=== PATIENT | female | born 1980 | race Caucasian/White ===

== ENCOUNTER 2019-02-18 09:52 | Day surgery (SDC) | payer BC ==
[2019-02-18] MEDS ORDERED: FENTANYL PF 100MCG/2ML VIAL IV ONE (09:53)
[2019-02-18] MEDS ORDERED: LIDOCAINE 2% MDV (20MG/ML) 20ML VIAL IV ONE (09:53)
[2019-02-18] MEDS ORDERED: PROPOFOL 10 MG/ML VIAL IV ONE (09:53)
--- NOTE | 2019-02-19 10:30 | Operative Note ---
OPERATION: ESOPHAGOGASTRODUODENOSCOPY with multiple biopsies and Boland dilatation. INDICATION: Episodic dysphagia to rice. The patient denied problems with meats or breads. She has a prior diagnosis of possible eosinophilic esophagitis at the time of endoscopy completed in 2012 by my associate. At that time, biopsies demonstrated eosinophilia but it was unclear whether this was related to acid reflux or eosinophilic esophagitis. Upper endoscopy was repeated at this time for further evaluation. The patient takes no medications for this. She also complains of some epigastric burning. She has a prior history of gastric ulcers. ANESTHESIA: Intravenous sedation was administered by the department of anesthesiology and included Diprivan titrated to effect. PROCEDURE: Following informed consent from this alert individual, including a discussion of the risks and benefits of the procedure and an opportunity for the patient to ask questions, the patient was in the left lateral decubitus position. The Olympus [id number] video endoscope was inserted into the esophagus without resistance. The proximal esophagus had a normal appearance with normal folds and distensibility. The mid and distal esophagus demonstrated some longitudinal furrows without significant luminal compromise. No ulcerations or erosions were noted. The GE junction was fairly well defined and approximated the diaphragmatic hiatus. The structure was traversed and stomach was entered. The gastric fundus and pars media had a normal appearance, with normal folds and distensibility. The antrum evaluated circumferentially demonstrated some linear erythema. There was also evidence of re-epithelialization involving the prepyloric antrum. There were no active ulcers within the stomach. The duodenal bulb, sweep, and descending duodenum were then examined in a serial fashion. There were superficial erosive changes noted in the apex of the duodenal bulb and duodenal sweep. The second portion of the duodenum appeared to be unremarkable. Biopsies were taken from the second portion of the duodenum and from the duodenal bulb to assess for histology and rule out celiac sprue, as the patient does have episodes of diarrhea. The endoscope was then drawn back into the stomach where multiple biopsies were taken particularly from the antrum but the proximal stomach as well. Retroflexion in the stomach failed to demonstrate any additional changes. The endoscope was then straightened and withdrawn to the esophagus where biopsies were taken from the distal esophagus and proximal esophagus. However, they were inadvertently placed in the same specimen container. The endoscope was then withdrawn. Dilation was then accomplished with a #16 Boland bougie without resistance. There were no mucosal tears noted after re-visualization of the esophagus endoscopically. The patient tolerated the procedure well and was returned to the recovery area in stable condition. IMPRESSION: 1. Longitudinal furrows noted above suggestive of eosinophilic esophagitis. Biopsies taken from the distal and proximal esophagus as mentioned. However, they were inadvertently placed in the same specimen container. No ulcerations or erosions were seen. The esophagus was dilated with a #16 Boland dilator without resistance. 2. Linear antral gastritis with evidence of re-epithelialization from prior gastric ulcer healing. 3. Mildly erosive duodenitis. Biopsies taken. RECOMMENDATION: Further recommendations will be forthcoming pending results of biopsies obtained today. I would like the patient to start with 20 mg of omeprazole daily and have her follow up in the GI clinic in the next 2 months. As always, thank you for allowing me to participate in the care of your patient. LEEROY
--- NOTE | 2019-02-19 11:00 | Operative Note ---
OPERATION: COLONOSCOPY to the cecum with cold snare polypectomy x2. INDICATION: Colorectal cancer screening in this individual with a family history of colon cancer in her grandparent. She also has episodes of infrequent diarrhea. Colonoscopy is performed at this time for further evaluation. ANESTHESIA: Intravenous sedation was administered by the department of anesthesiology and included Diprivan titrated to effect. PROCEDURE: Following informed consent from this alert individual including a discussion of the risks and benefits of the procedure and an opportunity for the patient to ask questions, the patient was in the left lateral decubitus position. A digital rectal examination was performed. No abnormalities were noted. Following this, the Olympus [id number] video colonoscope was inserted into the rectum without resistance. The rectal mucosa had a normal appearance with normal folds and distensibility. The sigmoid colon had 2 polyps noted measuring 6-7 mm in size each. The polyps were removed with cold snare polypectomy and suctioned through the colonoscope into a collection trap. The endoscope was then advanced up through the remainder of the bowel to the level of the cecum without difficulty. Throughout the bowel the mucosa appeared normal, the folds were normal, and the bowel was fairly well distensible. The cecum was defined by noting the appendiceal orifice and ileocecal valve. The colon preparation was good. From the base of the cecum, the colonoscope was then slowly withdrawn. There were a few diverticula noted in the ascending colon but no additional changes were noted throughout the bowel upon withdrawal. Retroflexion in the rectum was endoscopically normal. The endoscope was straightened and removed. The patient tolerated the procedure well and was returned to the recovery area in stable condition. IMPRESSION: 1. Two 6-7 mm sigmoid polyps removed with cold snare polypectomy. 2. Mild diverticulosis in the ascending colon. RECOMMENDATIONS: Further recommendations will be forthcoming pending results of pathology obtained today. Followup will also be with patient's primary caregiver, Maria Ines Lepe NP. As always, thank you for allowing me to participate in the care of your patient. LEEROY
== END 2019-02-18 12:35 | disposition home or self-care (01) ==
LOC: HOP 09:52
PROVIDERS: ATTEND Internal Medicine Gastroenterology
DX: Z12.11 Encounter for screening for malignant neoplasm of colon (principal); Z80.0 Family history of malignant neoplasm of digestive organs; K63.5 Polyp of colon; K57.30 Diverticulosis of large intestine without perforation or abscess without bleeding; R13.19 Other dysphagia; Z87.19 Personal history of other diseases of the digestive system; R12 Heartburn; K29.50 Unspecified chronic gastritis without bleeding; K29.80 Duodenitis without bleeding; K20.0 Eosinophilic esophagitis
CPT/HCPCS: 84703